=== PATIENT | male | born 1985 | race Caucasian/White ===

== ENCOUNTER 2020-02-11 10:51 | Outpatient (CLI) | payer OTHER, SELFPAY ==
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
== END 2020-02-11 10:52 | disposition home or self-care (01) ==
LOC: ANHIMG 10:54
PROVIDERS: PCP Internal Medicine; Visit Provider Nurse Practitioner
DX: R06.02 Shortness of breath (principal)
CPT/HCPCS: 71046

== ENCOUNTER 2020-02-29 09:23 | Outpatient (CLI) | payer OTHER, SELFPAY ==
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
[2020-02-29 09:58] LABS: Basophils Absolute Auto 0.1 K/mm3 (0.0-0.1); Basophils Percent Auto 0.6 % (0.2-1.2); Eosinophils Absolute Auto 0.5 K/mm3 (0-0.3); Eosinophils Percent Auto 5.8 % (0-4.4); Hemoglobin 15.7 g/dL (14.0-18.0); Immature Granulocyte Absolute 0.04 K/mm3 (0.00-0.031); Immature Granulocyte Percent A 0.5 % (0-0.5); Lymphocytes Absolute Auto 2.12 K/mm3 (0.9-3.2); Lymphocytes Percent Auto 24.2 % (18.3-44.2); Mean Corpuscular HGB Conc 32.7 g/dl (32-36); Mean Corpuscular Volume 91.6 fl (80-100); Mean Platelet Volume 9.7 fl (7.4-10.4); Monocytes Absolute Auto 0.7 K/mm3 (0.1-0.6); Neutrophils Absolute Auto 5.4 K/mm3 (1.3-6.7); Neutrophils Percent Auto 60.9 % (45.5-73.1); Platelet Count Result 270 k/mm3 (150-375); Red Blood Count 5.24 M/mm3 (4.6-6.20); Red Cell Distribution Width 14.1 % (11.5-14.5); White Blood Count 8.8 K/mm3 (4.5-10.0)
[2020-02-29 10:44] LABS: Erythrocyte Sedimentation Rate 18 mm/hr (0-20)
== END 2020-02-29 09:24 | disposition home or self-care (01) ==
PROVIDERS: PCP Internal Medicine; Visit Provider Internal Medicine
DX: M25.512 Pain in left shoulder (principal); D72.829 Elevated white blood cell count, unspecified
CPT/HCPCS: 36415; 73000; 73030; 85025; 85652

== ENCOUNTER 2020-05-02 06:35 | Outpatient (CLI) | payer OTHER, SELFPAY ==
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
== END 2020-05-02 06:36 | disposition home or self-care (01) ==
PROVIDERS: PCP Internal Medicine; Visit Provider Internal Medicine
DX: S42.035A Nondisplaced fracture of lateral end of left clavicle, initial encounter for closed fracture (principal); S46.012A Strain of muscle(s) and tendon(s) of the rotator cuff of left shoulder, initial encounter; V86.99XA Unspecified occupant of other special all-terrain or other off-road motor vehicle injured in nontraffic accident, initial encounter
CPT/HCPCS: 73221

== ENCOUNTER 2020-05-02 11:00 | Outpatient (RCR) | payer OTHER, SELFPAY ==
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
--- NOTE | 2020-04-11 09:32 | PCPTNOTE ---
Patient did not show up for scheduled appointment this date, called and left voicemail reminding about next scheduled appointment.
--- NOTE | 2020-04-13 09:49 | PCPTNOTE ---
Patient called & cancelled scheduled appointment this date no reason given.
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
--- NOTE | 2020-05-04 09:26 | PCPTNOTE ---
Admitting Provider: Attending Provider: Don Guzman DO Patient:Bry Bales Jr. Date of :1985 Discharge Note Patient has cancelled his remaining appointments since 05/02/2020, due to confirmed rotator cuff tear of his shoulder. Therefore he will be discharged at this time. Patient?s initial visit was on 03/27/2020 12:30 and he had a total of 9 visits. The goals have been partially met at this time. Thank you for referring this patient to [facility]. Please review, sign, date and return this discharge summary ASHLEY. I have been updated about the patient's current status and I agree with discharge from the above service at this time. Referring Physician Date
== END 2020-05-04 10:09 | disposition home or self-care (01) ==
LOC: ANHPT 11:00
PROVIDERS: PCP Internal Medicine; Visit Provider Internal Medicine
DX: M25.512 Pain in left shoulder (principal)
CPT/HCPCS: 97014; 97035; 97110; 97140; 97162; G0283

== ENCOUNTER 2020-05-25 08:40 | Outpatient (RCR) | payer OTHER, SELFPAY ==
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
--- NOTE | 2020-06-01 12:23 | PCPTNOTE ---
Admitting Provider: Attending Provider: Eloy Jerome, Patient:Bry Bales Jr. Date of :1985 Discharge note Patient has cancelled his remaining appointment due to scheduled for shoulder surgery. Patient?s initial visit was on 05/25/2020 08:45 and he had a total of 1 visits. The goals have not been met. Thank you for referring this patient to [facility]. Please review, sign, date and return this discharge summary ASHLEY. I have been updated about the patient's current status and I agree with discharge from the above service at this time. Referring Physician Date
== END 2020-08-16 14:54 | disposition home or self-care (01) ==
LOC: ANHPT 08:40
PROVIDERS: PCP Internal Medicine; Visit Provider Orthopaedic Surgery
DX: S46.012D Strain of muscle(s) and tendon(s) of the rotator cuff of left shoulder, subsequent encounter (principal); S43.52XD Sprain of left acromioclavicular joint, subsequent encounter
CPT/HCPCS: 97110; 97162

== ENCOUNTER 2020-08-22 19:52 | Emergency (ER) | payer OTHER, SELFPAY ==
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
[2020-08-22 20:16] VITALS: TEMP 36.9
[2020-08-22 20:27] LABS: Hematocrit 47.9 % (42.0-52.0); Hemoglobin 16.5 g/dL (14.0-18.0); Mean Corpuscular HGB Conc 34.4 g/dl (32-36); Mean Platelet Volume 10.4 fl (7.4-10.4); Platelet Count Result 264 k/mm3 (150-375); Red Blood Count 5.32 M/mm3 (4.6-6.20); Red Cell Distribution Width 13.8 % (11.5-14.5); White Blood Count 16.9 K/mm3 (4.5-10.0)
[2020-08-22] MEDS: SODIUM CHLORIDE 0.9% IV 1,000 ML 999 ML IV CONT (20:27)
[2020-08-22] MEDS: MORPHINE SULFATE (*CRX) 4 MG/ML INJ IV PUSH (20:28)
[2020-08-22] MEDS: ONDANSETRON INJ 4 MG/2 ML VIAL IV PUSH (20:29)
[2020-08-22 20:40] LABS: Anion Gap 9 mmol/L (8-16); Blood Urea Nitrogen 12 mg/dL (9-20); Calcium 9.4 mg/dL (8.4-10.2); Carbon Dioxide 27 mmol/L (22-30); Chloride 105 mmol/L (98-107); Estimated CRCL calculation 143 ml/min; Estimated Glomerular Filt Rate > 60; Glucose 103 mg/dL (75-110); Potassium 4.2 mmol/L (3.4-5.0); Sodium 141 mmol/L (137-145)
[2020-08-22] MEDS: KETOROLAC 30 MG/ML VIAL (*BKC) 15 MG IV PUSH (21:58)
[2020-08-22] MEDS: oxyCODONE/ACETAMINOPHEN (*CRX) 5-325 MG TABLET 2 TABLET PO (21:59)
[2020-08-22 22:16] VITALS: BP 142/78; PULSE 78; RESP 16; O2SAT 100
== END 2020-08-22 22:17 | disposition home or self-care (01) ==
PROVIDERS: Emergency Provider Emergency Medicine; PCP Internal Medicine
DX: S22.32XA Fracture of one rib, left side, initial encounter for closed fracture (principal); M47.816 Spondylosis without myelopathy or radiculopathy, lumbar region; F41.9 Anxiety disorder, unspecified; V86.95XA Unspecified occupant of 3- or 4- wheeled all-terrain vehicle (ATV) injured in nontraffic accident, initial encounter
CPT/HCPCS: 36415; 70450; 71260; 72125; 72129; 72132; 74177; 80048; 85025; 96361; 96374; 96375; 99284; A9270; J0131; J1885; J2270; J2405; J7030; Q9967

== ENCOUNTER 2020-08-28 10:45 | Outpatient (RCR) | payer SELFPAY ==
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
--- NOTE | 2020-07-25 13:03 | PCPTNOTE ---
Patient did not show up for scheduled appointment this date.
--- NOTE | 2020-07-27 11:30 | PCPTNOTE ---
Patient did not show up for scheduled appointment this date.
--- NOTE | 2020-08-03 15:34 | PCPTNOTE ---
Patient did not show up for scheduled appointment this date.
--- NOTE | 2020-08-08 08:31 | PCPTNOTE ---
pt did not show for today's appt; called and left voice mail message with reminder for next appt on 08-10-20 at 8:00;
--- NOTE | 2020-08-10 08:21 | PCPTNOTE ---
pt did not show for today's appt; called and left voice mail message--all remaining appts canceled and he has to call if needs more PT before POC date of 08-23-20; if not return, will be d/c from PT at that time.
--- NOTE | 2020-08-16 14:30 | PCPTNOTE ---
Addendum entered by Brittany Bauer, PT 08/17/20 16:15: 08-17-2020: Mr. Bales called today and wanted to reschedule his reevaluation, to resume PT treatment. The Discharge was canceled and his chart was reopened. The reevaluation is scheduled for August 24. Original Note: PHYSICAL THERAPY DISCHARGE 08-16-2020 Attending Provider: Eloy Jerome, Patient:Bry Bales Jr. Date of :1985 Mr. Bales has not returned for any further treatments since 08/01/2020, therefore he will be discharged at this time. He received the PT evaluation on July 12 for the diagnosis of s/p L shoulder surgery and had 3 additional PT sessions, then he did not show for the remaining appointments. The goals were not assessed. Thank you for referring Bry to [facility]. Please review, sign, date and return this discharge summary ASHLEY. I have been updated about the patient's current status and I agree with discharge from the above service at this time. Referring Physician Date
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
--- NOTE | 2020-08-28 11:25 | PCPTNOTE ---
Patient did not show up for scheduled appointment this date. Called Pt, Pt apologized he thought his appointment was on Friday08/29/20 not today and was out of town. Reminded Pt of upcoming appointment on 09/01/20 at 10:45am.
--- NOTE | 2020-09-01 11:04 | PCPTNOTE ---
Patient did not show up for scheduled appointment this date. Called Pt, Pt stated to have forgotten about his appointment this morning. Reminded Pt of his next appointment on Friday, 09/04 at 8:00am. Pt confirmed the appointment would work for him.
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
--- NOTE | 2020-09-08 11:59 | PCPTNOTE ---
Patient did not show up for scheduled appointment this date.
--- NOTE | 2020-09-11 09:39 | PCPTNOTE ---
Patient did not show up for scheduled appointment this date.
--- NOTE | 2020-09-15 09:52 | PCPTNOTE ---
pt did not show for today's treatment appointment; I called and left him a voice mail message--- his remaining 2 scheduled appts have been canceled and if needs any more PT, he will have to call and schedule.
--- NOTE | 2020-09-27 09:02 | PCPTNOTE ---
PHYSICAL THERAPY DISCHARGE 09-27-2020 Attending Provider: Eloy Jerome MD Patient:Bry Bales Jr. Date of :1985 Ty has not returned for any further treatments since 08/28/2020, therefore he will be discharged at this time. He has received 5 PT sessions, from July 12 to August 24, then stopped attending PT. He did not show for 10 scheduled appointments and called and canceled 1 appointment. The goals were not achieved. Thank you for referring Mr. Bales to [facility]. Please review, sign, date and return this discharge summary ASHLEY. I have been updated about the patient's current status and I agree with discharge from the above service at this time. Referring Physician Date
== END 2020-09-27 14:34 | disposition home or self-care (01) ==
LOC: ANHPT 10:45
PROVIDERS: PCP Internal Medicine; Visit Provider Orthopaedic Surgery
DX: Z48.817 Encounter for surgical aftercare following surgery on the skin and subcutaneous tissue (principal)
CPT/HCPCS: 97110; 97140; 97161

== ENCOUNTER 2022-01-24 10:19 | Outpatient (CLI) | payer MEDICAID, SELFPAY ==
--- NOTE | ~2022-01-24 | XR_ITS ---
EXAMINATION: XR ankle LT min 3V, XR foot LT min 3V DATE: 01/24/2022 11:36 INDICATION: Left foot pain and swelling TECHNIQUE: 1. Anteroposterior, mortise, additional oblique and lateral view of the left ankle were obtained. 2. Dorsoplantar, two oblique and lateral views of the left foot were obtained. COMPARISON: None. FINDINGS: Chronic segmental osteotomy of the proximal diaphysis of the fourth metatarsal with smooth corticated margins. Alignment of the left foot and ankle is otherwise normal. No fracture. Osteoarthritis with mild joint space narrowing at the second tarsal metatarsal joint mild osteoarthritis at the the tibio talar, navicular cuneiform and first metatarsophalangeal and a few interphalangeal joints. No cortica l erosions or periosteal reaction. No ankle joint effusion. The soft tissues are unremarkable. IMPRESSION: 1. No acute osseous abnormality at the left foot and ankle. 2. Segmental osteotomy of the proximal diaphysis of the left fourth metatarsal. Line 3. Polyarticular osteoarthritis, moderate at the second tarsal metatarsal joint and otherwise mild. Reviewed, dictated and finalized at location A. IMPRESSION: 1. No acute osseous abnormality at the left foot and ankle. 2. Segmental osteotomy of the proximal diaphysis of the left fourth metatarsal. Line 3. Polyarticular osteoarthritis, moderate at the second tarsal metatarsal joint and otherwise mild.
--- NOTE | ~2022-01-24 | US_ITS ---
EXAMINATION: US venous doppler [facility] DATE: 01/24/2022 10:50 INDICATION: Left lower limb pain and swelling. TECHNIQUE: Grayscale ultrasound images without and with compression and Doppler ultrasound images of the left lower extremity veins were obtained. COMPARISON: None. FINDINGS: The visualized portions of left common femoral vein, profunda (deep) femoral vein, femoral vein, popl iteal vein, peroneal veins, posterior tibial veins, and greater saphenous vein outflow are patent. IMPRESSION: 1. No deep venous thrombosis. Reviewed, dictated and finalized at location A.
== END 2022-01-24 10:20 | disposition home or self-care (01) ==
PROVIDERS: PCP Internal Medicine; Visit Provider Nurse Practitioner
DX: R60.9 Edema, unspecified (principal); M19.072 Primary osteoarthritis, left ankle and foot
CPT/HCPCS: 73610; 73630; 93971

== ENCOUNTER 2023-01-27 09:05 | Outpatient (CLI) | payer OTHER, SELFPAY ==
--- NOTE | ~2023-01-27 | XR_ITS ---
AP and lateral views of the bilateral hips Clinical history: Pain Findings: No acute fracture or dislocation is seen. Single orthopedic screw is present within each fe moral neck. Osseous alignment is anatomic. Bilateral hip and SI joint spaces are preserved. Soft tiss ues are unremarkable. Impression: No acute abnormality evident. Single orthopedic screw within each femoral neck. Correlate with surgical history. Reviewed, dictated and finalized at [facility]. Impression: No acute abnormality evident. Single orthopedic screw within each femoral neck. Correlate with surgical histo ry.
--- NOTE | ~2023-01-27 | XR_ITS ---
Lumbosacral Spine: AP and lateral views Clinical History: Pain Findings: The normal lordotic curve is maintained. Minimal anterior wedging deformity of T11 noted. N o lumbar fracture identified. Probable grade 1 anterolisthesis of L5 over S1.. There is advanced dege nerative disc narrowing at L2-L3. The sacroiliac joints are normally outlined. Impression: Minimal anterior wedging deformity of T11. Probable grade 1 anterolisthesis of L5 over S1. Advanced degenerative disc narrowing at L2-L3. Reviewed, dictated and finalized at location . Impression: Minimal anterior wedging deformity of T11. Probable grade 1 anterolisthesis of L5 over S1. Advanced degenerative disc narrowing at L2-L3.
== END 2023-01-27 09:06 | disposition home or self-care (01) ==
PROVIDERS: PCP Internal Medicine; Visit Provider Nurse Practitioner
DX: M25.551 Pain in right hip (principal); M25.552 Pain in left hip; M54.50 Low back pain, unspecified; M51.36 Other intervertebral disc degeneration, lumbar region
CPT/HCPCS: 72100; 73521

== ENCOUNTER 2023-02-21 12:45 | Outpatient (RCR) | payer OTHER, SELFPAY ==
--- NOTE | 2023-02-20 15:33 | PCPTNOTE ---
Pt rescheduled todays appt for tomorrow.
--- NOTE | 2023-02-20 19:36 | PTOPEVAL1 ---
Assessment and note entered by Skip Moreno, PT Evaluation Information Assessment Status Evaluation Diagnosis low back pain Onset chronic Subjective Information Patient reports he is homeless and sleeps a lot on concrete and also has had ALBA hip surgeries when he was younger. His pain is radiating down the legs. Occasionally it will cause his legs to buckle causing him to catch himself. Has trouble with walking, riding his bike, and sleeping. Takes IBU and Tylenol. Assessment PT Clinical Summary Ty is a 27 year old male coming into the clinic with a diagnosis of low back pain. The patient has tightness in his lumbar paraspinals along with lower extremity tightness and poor core. Physical therapy will start with modalities, stretching, and manual therapy to help with pain control and get back in better alignment then progress to core strengthening. Based on patient reporting he sleeps on the concrete and homeless it will slow progress and make prognosis guarded. Plan of Care Interventions Electrical Stimulation,Gait Training,Hot Pack/Cold Pack,Manual Therapy,Mechanical Traction,Neuro Re- education,Patient/Caregiver Education,Therapeutic Activities,Therapeutic Exercise,Ultrasound Other Interventions cupping, taping, IASTM PT Services Indicated Yes Treatment Frequency and 1-2x/wk for 4 weeks Duration These treatments will address the objective and functional deficits as defined above. The patient will be advanced safely and appropriately in order for the patient to progress towards his/her prior level of function. Additional exercises will be introduced and as well as a comprehensive home exercise program upon discharge, if needed, ?to ensure carryover of functional gains achieved in the clinic. This treatment plan has been reviewed and agreement upon by the patient.
--- NOTE | 2023-02-28 13:14 | PCPTNOTE ---
Pt called 30 min before appt time to cancel his appt due to no ride.
--- NOTE | 2023-03-03 14:08 | PCPTNOTE ---
Patient did not show up for scheduled appointment this date.
--- NOTE | 2023-03-06 14:56 | PCPTNOTE ---
Pt no showed appt today.
--- NOTE | 2023-03-11 13:22 | PCPTNOTE ---
Pt no showed for visit this afternoon. Pt was called and a message was left with day and time of next visit.
--- NOTE | 2023-03-13 09:57 | PCPTNOTE ---
Admitting Provider: Attending Provider: Tami Lee NP Patient:Bry Bales Jr. Date of :1985 Patient has not returned for any further treatments since 02/21/2023, therefore he will be discharged at this time. Patient?s initial visit was on 02/18/2023 13:15 and he had a total of ____2____ visits with 3 no shows and 2 cancellations The goals have been not met. Thank you for referring this patient to [facility]. Please review, sign, date and return this discharge summary ASHLEY. I have been updated about the patient's current status and I agree with discharge from the above service at this time. Referring Physician Date
== END 2023-03-13 11:59 | disposition home or self-care (01) ==
LOC: ANHPT 12:45
PROVIDERS: PCP Internal Medicine; Visit Provider Nurse Practitioner
DX: M54.50 Low back pain, unspecified (principal)
CPT/HCPCS: 97014; 97110; 97140; 97161; 99199; G0283

== ENCOUNTER 2023-03-22 11:13 | Emergency (ER) | payer OTHER, SELFPAY ==
[2023-03-22 11:22] VITALS: BP 131/80; PULSE 74; RESP 18; TEMP 36.6; O2SAT 98
--- NOTE | 2023-03-22 12:52 | ED.PROGRESS ---
Subjective Date/time seen: 03/22/23 12:52 Interval history: I went out to introduce myself to patient and bring back to triage room to do initial evaluation since we do not have any rooms in the back. Pt declined to be seen because he did not want to be put back out in the waiting room and is opting to leave instead. Review of Systems Review of Systems not done Exam Narrative not done Objective Data Vital Signs Vital Signs: Vital Signs - 24 hr 03/22/23 11:22 Temperature 36.6 C Pulse Rate 74 Respiratory Rate 18 Blood Pressure 131/80 Pulse Oximetry 98 Oxygen Delivery Room Air Progress Note: A&P Assessment and Plan (1) Low back pain: Code(s): M54.50 - Low back pain, unspecified Status: Acute Plan Leaving without evaluation by provider. Time Spent With Patient Time: 5 minutes
--- NOTE | 2023-03-22 12:53 | PC.NURSE ---
When ACROBATIC RIGGER approached pt to evaluate pt. pt states he does not want to wait any longer and is leaving. IV removed w/ catheter intact.
== END 2023-03-22 13:43 | disposition left against medical advice (07) ==
PROVIDERS: Emergency Provider Nurse Practitioner Family; PCP Internal Medicine
DX: M54.50 Low back pain, unspecified (principal)
CPT/HCPCS: 99199

== ENCOUNTER 2023-03-30 07:37 | Outpatient (CLI) | payer OTHER, SELFPAY ==
--- NOTE | ~2023-03-30 | MR_ITS ---
EXAMINATION: MR lumbar spine wo con DATE: 03/30/2023 08:03 INDICATION: Low back pain, unspecified. TECHNIQUE: Magnetic resonance imaging (MRI) of the lumbar spine was performed without intravenous con trast. Sequences included sagittal T2-weighted FSE, sagittal T2-weighted FS FSE, sagittal T1-weighted FSE, and axial T2-weighted FSE. COMPARISON: Lumbar spine radiographs 01/27/2023 FINDINGS: There is 6 degrees levocurvature of lumbar spine. There is 5 mm retrolisthesis of L2 on L3. There is mild chronic anterior wedging of T11-L2 vertebral bodies. There is severely decreased disc height at L2-L3 and mildly decreased disc height at L3-L4 with endplate remodeling. The distal spinal cord signal intensity is normal. The conus medullaris is at L1. The following disc levels are specif ically discussed: L1-L2: The disc is bulging. There is severe bilateral facet joint osteoarthritis. There is mild left neural foraminal stenosis. There is mild central canal stenosis. L2-L3: The disc is bulging with superimposed right subarticular zone extrusion. There is moderate damaris ateral facet joint osteoarthritis. There is moderate bilateral neural foraminal stenosis. There is mi ld central canal stenosis. There is moderate stenosis of right lateral recess. L3-L4: The disc is bulging. There is severe bilateral facet joint osteoarthritis. There is mild right and moderate left neural foraminal stenosis. There is mild central canal stenosis. L4-L5: The disc is bulging. There is severe bilateral facet joint osteoarthritis. There is mild bilat eral neural foraminal stenosis. There is no central canal stenosis. L5-S1: The disc is bulging. There is severe bilateral facet joint osteoarthritis. There is mild later al neural foraminal stenosis. There is mild central canal stenosis. IMPRESSION: 1. Severe lumbar spondylosis. Reviewed, dictated and finalized at location A.
== END 2023-03-30 07:38 | disposition home or self-care (01) ==
PROVIDERS: PCP Internal Medicine; Visit Provider Nurse Practitioner
DX: M47.896 Other spondylosis, lumbar region (principal)
CPT/HCPCS: 72148

== ENCOUNTER 2023-09-04 09:29 | Outpatient (CLI) | payer OTHER, SELFPAY ==
--- NOTE | ~2023-09-04 | MR_ITS ---
EXAMINATION: MR cervical spine wo con DATE: 09/04/2023 10:12 INDICATION: Disease of spinal cord, unspecified. TECHNIQUE: Magnetic resonance imaging (MRI) of the cervical spine was performed without intravenous c ontrast. COMPARISON: CT cervical spine 08/22/2020 FINDINGS: There is hypolordosis of the cervical spine. There are Schmorl's nodes of the inferior endp lates of C4 and C6. There is mild chronic anterior wedging of T1 vertebral body. There is mildly decr eased disc height at C6-C7. The spinal cord signal intensity is normal. The following disc levels are specifically discussed: C2-C3: The disc does not extend beyond the endplate margin. There is no uncovertebral joint osteoarth ritis. There is moderate left facet joint osteoarthritis. There is mild left neural foraminal stenosi s. There is no central canal stenosis. C3-C4: The disc does not extend beyond the endplate margin. There is no uncovertebral joint osteoarth ritis. There is severe bilateral facet joint osteoarthritis. There is mild left neural foraminal sten osis. There is no central canal stenosis. C4-C5: The disc does not extend beyond the endplate margin. There is mild bilateral uncovertebral brittny nt osteoarthritis. There is mild right facet joint osteoarthritis. There is no neural foraminal steno sis. There is no central canal stenosis. C5-C6: The disc does not extend beyond the endplate margin. There is no uncovertebral joint osteoarth ritis. There is mild right and moderate left facet joint osteoarthritis. There is no neural foraminal stenosis. There is no central canal stenosis. C6-C7: The disc is bulging. There is mild bilateral uncovertebral joint osteoarthritis. There is mild bilateral facet joint osteoarthritis. There is mild bilateral neural foraminal stenosis. There is mi ld central canal stenosis. C7-T1: There is a central protrusion. There is no uncovertebral joint osteoarthritis. There is severe bilateral facet joint osteoarthritis. There is mild bilateral neural foraminal stenosis. There is no central canal stenosis. IMPRESSION: 1. Mild cervical spondylosis. Reviewed, dictated and finalized at location E.
--- NOTE | ~2023-09-04 | XR_ITS ---
EXAMINATION: XR lumbar spine 2-3V DATE: 09/04/2023 10:26 INDICATION: Low back pain TECHNIQUE: Lateral views of the lumbar spine in neutral, flexion, and extension were obtained. COMPARISON: 01/27/2023 FINDINGS: There are 5 mm of unchanged retrolisthesis of L2 on L3. No hypermobility is noted with flex ion or extension. The vertebral body heights are maintained. There is severe loss of intervertebral d isc space height at L2-3. The lumbar vertebral body heights are maintained. Small degenerative osteop hytes project from the anterior endplates of multiple vertebral bodies. IMPRESSION: 1. Severe lumbar spondylosis at L2-3 without acute findings or significant interval change. Reviewed, dictated and finalized at location F. IMPRESSION: 1. Severe lumbar spondylosis at L2-3 without acute findings or significant inte rval change.
== END 2023-09-04 09:30 | disposition home or self-care (01) ==
PROVIDERS: PCP Internal Medicine; Visit Provider Neurological Surgery
DX: M43.16 Spondylolisthesis, lumbar region (principal); M48.061 Spinal stenosis, lumbar region without neurogenic claudication; G95.9 Disease of spinal cord, unspecified; M47.26 Other spondylosis with radiculopathy, lumbar region; M47.892 Other spondylosis, cervical region
CPT/HCPCS: 72100; 72141

== ENCOUNTER 2025-06-09 13:38 | Emergency (ER) | payer OTHER, SELFPAY ==
--- NOTE | 2025-06-09 13:43 | ED_ITS ---
HPI - URI/Sore Throat General Chief Complaint: Upper Respiratory Infection Stated Complaint: Ears/Sore Throat Time Seen by Provider: 06/09/25 13:50 Source: patient Mode of arrival: ambulatory Limitations: no limitations History of Present Illness HPI Narrative: Don is a 40-year-old male patient presenting to the clinic today with complaints bilateral ear discomfort, runny nose, congestion, cough, and sore throat x2 days. He denies any fevers, chills, or body aches. No chest pain or shortness of breath Related Data Home Medications ?Medication ?Instructions ?Recorded ?Confirmed ?Last Taken ?Type buspirone 10 mg tablet See Rx Instructions .Route 11/20/23 Unknown History .COMPLEX PRN Allergies Allergy/AdvReac Type Severity Reaction Status Date / Time No Known Allergies Allergy Verified 06/09/25 13:44 Review of Systems Review of Systems: Pertinent positives per HPI. Patient denies any fever, chills, rash, headache, visual changes, dizziness, cough, shortness of breath, chest pain, palpitations, nausea, vomiting, diarrhea, constipation, abdominal pain, or any urinary issues. [facility] Past Medical History Medical History Depression Rotator cuff disorder Left side surgery 06/20/2020. Anxiety Surgical History Surgical History H/O foot surgery Family History Family History Mother Patient's mother is in good health Family history of cardiovascular disease Family history of malignant neoplasm Father Patient's father is in good health Other Family history of alcoholism Family history of arthritis Hypertension Social History Social History Smoking packs per day: 2 Smoking cigarettes per day: 40.0 Smoking status: Current every day smoker Additional smoking assessment comments: down to a pack every 3 days Alcohol intake: current Alcohol use details: less than 1 drink per week Substance use: current Substance use type: marijuana Do You Feel Safe in your Home?: Yes Lack of Transportation: No Lack of Food: Sometimes True Current Housing: I Have Housing Concerned About Future Housing: No Difficulty Paying Gas/Electric Bills: No Difficulty Paying for Meds: No Currently Unemployed: No Education: Associate Degree Difficulty w/ Childcare or Family Care: No Comments At the time of my signature, I reviewed and agree with the nursing past medical, surgical, social, and family history. There is no relevant family history pertinent to the patient complaint. Exam Narrative: General: Well-developed, well nourished, in no apparent distress Head: Normocephalic, atraumatic Eyes: Pupils equally round and reactive to light bilaterally, EOM intact, sclera and conjunctive clear, no discharge, lids normal Ears: TMs intact and congested, ear canals clear, no drainage, grossly hearing normal. Nose: Nares patent, clear discharge, moderate inflammation, no sinus tenderness. Mouth: Oral pharynx red without lesions or masses, good dentition, MMM. Neck: Supple, trachea midline, no enlargement of anterior or posterior cervical nodes, no thyroid masses or goiter palpable. Cardio: Regular rate and rhythm, s1 and s2 normal, no murmur appreciated. Resp: Clear to auscultation bilaterally, no rhonchi, rales, wheezing or rubs Course Course Emergency Course: Portions of this record may have been created with voice recognition software. Level of Care: Express Care Visit Vital Signs Vital signs: Vital Signs Temperature 36.6 C 06/09/25 13:46 Pulse Rate 95 06/09/25 13:46 Respiratory Rate 16 06/09/25 13:46 Blood Pressure 183/86 H 06/09/25 13:46 Pulse Oximetry 96 06/09/25 13:46 Oxygen Delivery Room Air 06/09/25 13:46 Temperature 36.6 C 06/09/25 13:46 Pulse Rate 95 06/09/25 13:46 Respiratory Rate 16 06/09/25 13:46 Blood Pressure 183/86 H 06/09/25 13:46 Pulse Oximetry 96 06/09/25 13:46 Oxygen Delivery Room Air 06/09/25 13:46 Vital signs reviewed MDM - URI/Sore Throat MDM Narrative Medical decision making narrative: At the time of visit patient is resting comfortably on the exam table. Patient appears to be nontoxic. Complaints bilateral ear discomfort, runny nose, congestion, cough, and sore throat x2 days. He denies any fevers, chills, or body aches. No chest pain or shortness of breath Offered COVID testing and patient declined. Strep test was ordered. Labs: Strep test was negative in the clinic today. We will send strep for culture Plan: I suspect patient has URI/pharyngitis. Supportive measures were discussed with the patient and they voiced understanding discharge instructions and agrees to treatment plan. Return precautions reviewed Differential Diagnosis Differential diagnosis: Likely upper respiratory infection, otitis media, sinusitis, viral infection, bronchitis, influenza, pharyngitis and other Lab Data Labs: Lab Results 06/09/25 Range/Units 14:03 POC Grp A Strep Screen Negative (Negative) Discharge Plan Discharge Clinical Impression: URI (upper respiratory infection) Qualifiers: URI type: unspecified URI Qualified Code(s): J06.9 - Acute upper respiratory infection, unspecified Pharyngitis Qualifiers: Pharyngitis/tonsillitis etiology: unspecified etiology Qualified Code(s): J02.9 - Acute pharyngitis, unspecified Patient Disposition: Home Condition: Stable Instructions: Antibiotic Form, Pharyngitis (ED), Cold Symptoms (ED) Additional Instructions: Strep test was negative in the clinic today. We will send strep for culture if this comes back positive we will contact you and place you on antibiotics at that time. May take Coricidin HBP for cold/flu symptoms as directed Increase fluids and stay well hydrated Tylenol/motrin for pain/fever as per bottle directions Flonase and OTC antihistamines such as Zyrtec or Claritin 10 mg daily as directed Vicks vapor rub to open sinuses Sinus rinses for congestion Cepacol spray, cough drops, throat lozenges, warm tea with honey/lemon, gargle salt water to soothe throat BRAT diet for diarrhea Clear liquids x 24 hours then advance as tolerated for nausea/vomiting Go to the ED if you develop a worsening in your condition- high fever not controlled by Tylenol or Motrin, dehydration, weakness, lethargy, shortness of breath, or chest pain. Follow up with your PCP in 3-5 days if symptoms persist. Patient Language: [place]an Prescriptions: No Action cyclobenzaprine 10 mg tablet 10 mg PO TID PRN (Reason: muscle spasm) Qty: 30 2RF buspirone 10 mg tablet See Rx Instructions .ROUTE .COMPLEX PRN Dose Instruction: TAKE 2 TABLETS BY MOUTH TWICE DAILY. LAST REFILL UNTIL SEEN Rx Instructions: TAKE 2 TABLETS BY MOUTH TWICE DAILY. LAST REFILL UNTIL SEEN PRN; albuterol sulfate 90 mcg/actuation HFA aerosol inhaler See Rx Instructions .ROUTE .COMPLEX Qty: 8.5 3RF Dose Instruction: INHALE 2 PUFFS BY MOUTH EVERY 4-6 HOURS NEEDED Rx Instructions: INHALE 2 PUFFS BY MOUTH EVERY 4-6 HOURS NEEDED sertraline 100 mg tablet 200 mg PO DAILY Qty: 180 0RF Rx Instructions: NEEDS APPOINTMENT FOR FURTHER REFILLS Follow-up/Referrals: Don Guzman DO [Primary Care Provider] - Time of Disposition: 14:08 Quality NIHSS Nursing Documentation ED NIHSS nursing documentation: reviewed/agree
[2025-06-09 13:46] VITALS: BP 183/86; PULSE 95; RESP 16; TEMP 36.6; O2SAT 96
[2025-06-09 14:05] LABS: EDSTREPNEGPOS1 Negative (Negative)
== END 2025-06-09 14:12 | disposition home or self-care (01) ==
PROVIDERS: Emergency Provider Nurse Practitioner Family; PCP Internal Medicine
DX: J06.9 Acute upper respiratory infection, unspecified (principal); J02.9 Acute pharyngitis, unspecified; F17.210 Nicotine dependence, cigarettes, uncomplicated; F41.9 Anxiety disorder, unspecified; F32.A Depression, unspecified
CPT/HCPCS: 87081; 87880; 99213; G0463

== ENCOUNTER 2025-07-21 07:47 | Outpatient (CLI) | payer OTHER, SELFPAY ==
--- NOTE | 2025-08-03 12:51 | P.SLEEP_ITS ---
Sleep Study - Home Unattended Date of Study: 07/21/25 Ordering Provider: Tami Lee NP Interpreting Provider: Ophelia De, DO Home Sleep Study Type: Watch PAT Height: 1.73 m Weight: 131.542 kg Body Mass Index: 44.1 Neck Circumference (inches): 17.25 [place]: 4 Reason for Sleep Study Loud snoring, witnessed apneas Sleep History The patient is a 40-year-old male that had a sleep study ordered by his primary care for evaluation of sleep apnea. He admits to snoring loudly, trouble maintaining sleep and interruptions in breathing while sleeping. He does choke or gasp at night. He denies having trouble breathing on his back. He denies morning headaches. He does have a dry or sore mouth/ throat in the morning. He does have nocturnal heartburn. He denies nocturia. He denies having difficulty returning to sleep if he wakes up throughout the night. He denies any hypnotic or sedative use. He denies feeling anxious about sleep. He does feel tired or sleepy during the day. He denies feeling tired in the morning. He denies having the urge to fall asleep during the day. He denies feeling drowsy while driving. He denies sleep paralysis, cataplexy and hypnagogic/ hypnopompic hallucinations. He does clench or grind his teeth. He does kick or jerk his legs excessively. He does have a restless feeling in his legs but it does not cause an urge to move his legs. It is not worse with rest. It does get better with activity. It is predominantly in the evening but it does not cause a disturbance in his sleep. He goes to bed at 10:00 p.m. on work days and at 11:00 p.m. on his days off. It takes him 15 minutes to fall asleep. He gets 7-1/2 hours of sleep on work days and 7 hours on his days off. His sleep is somewhat restorative on days off. He denies taking any planned naps. He denies dream enactment behavior. He denies sleep walking. He consumes 1-2 cups of caffeinated beverage per day. He consumes more than 3 alcoholic beverages 5-7 nights per week. He smokes more than 1 pack of cigarettes per day. He denies exercising on a regular basis. [facility] Past Medical History Medical History Depression Rotator cuff disorder Left side surgery 06/20/2020. Anxiety Surgical History Surgical History H/O foot surgery Family History Family History Mother Patient's mother is in good health Family history of cardiovascular disease Family history of malignant neoplasm Father Patient's father is in good health Other Family history of alcoholism Family history of arthritis Hypertension Social History Social History Smoking packs per day: 2 Smoking cigarettes per day: 40.0 Smoking status: Current every day smoker Additional smoking assessment comments: down to a pack every 3 days Alcohol intake: current Alcohol use details: less than 1 drink per week Substance use: current Substance use type: marijuana Do You Feel Safe in your Home?: Yes Lack of Transportation: No Lack of Food: Sometimes True Current Housing: I Have Housing Concerned About Future Housing: No Difficulty Paying Gas/Electric Bills: No Difficulty Paying for Meds: No Currently Unemployed: No Education: Associate Degree Difficulty w/ Childcare or Family Care: No Medications Home Medications ?Medication ?Instructions ?Recorded ?Confirmed ?Type albuterol sulfate 90 mcg/actuation See Rx Instructions .Route 07/01/25 07/01/25 Rx aerosol inhaler .COMPLEX #8.5 grams buspirone 10 mg tablet 10 mg PO BID PRN anxiety #60 tabs 07/01/25 07/01/25 Rx omeprazole 20 mg capsule,delayed 20 mg PO DAILY #90 ca ps 07/13/25 Rx release Sleep Procedure The sleep study was completed using [employer] AGT a technically adequate device with seven channels: peripheral arterial tone, actigraphy, body position, snore, respiratory movement, pulse oximetry, sleep staging, and heart rate. Prior to using the device, the patient received verbal and written instructions for its application and was provided with the [employer] phone number for additional telephonic instruction with 24-hour availability of qualified personnel to answer questions. The study was scored using CMS guidelines. Sleep Architecture The total recording time is 6 hrs, 3 min. The total sleep time is 3 hrs, 38 min. Sleep latency is 107 minutes. REM latency is 44 minutes. The patient had 4 episodes of waking. Sleep architecture shows 12.4% deep sleep, 52.7% light sleep, and (as % Total Sleep Time) showed NREM (Light 52.7%; Deep 12.4%), and a 35.0% stage REM. The patient spent 41.8% of total sleep time in the supine position. Sleep efficiency was 60.06. Respiratory Analysis The overall AHI (pAHI 4%:) is 15.8. The overall AHI (pAHI 3%:) is 21.7. The central AHI is 0.0. The AHI was 14.1 in NREM and 35.8 in REM sleep. The AHI was 23.3 in Supine and 20.5 in Non-supine sleep. Percent of Cecilio Sumner respirations is 0.0. Oximetry Data The oxygen desaturation index (RYLIE 4%:) is 13.6. The mean saturation is 94%, and the lowest saturation is 87%. Time spent with saturation < 88% is 0.4 minutes. Snoring Profile Snoring average intensity is 51 dB. The patient snored above 45 decibels for 143.8 minutes, 65.8% of sleep time. Cardiac Profile The average pulse rate is 84 beats per minutes. The lowest pulse rate is 65 bpm. The highest pulse rate reported is 110 bpm. Atrial fibrillation was not detected. Premature beats occur 0.3 per minute. Assessment and Plan Assessment and Plan (1) ARIANA (obstructive sleep apnea): Code(s): G47.33 - Obstructive sleep apnea (adult) (pediatric) Status: Acute Assessment and Plan: The patient had an overall AHI of 15.8 with desaturation down to 87%. This is consistent with moderate sleep apnea. I recommend that the patient be prescribed AutoPAP 5-15 cm H2O, CPAP mask/filters/tubing and heated humidity. A mandibular advancement device is also an acceptable treatment option. This should be used with all episodes of sleep.? Compliance should be reviewed within 31-90 days of starting therapy for usage greater than 4 hours per night greater than 70% of the nights. The patient should be asked about symptoms such as?excessive daytime sleepiness, quality of sleep, decreased nocturia, increased?mental functioning such as memory, mood, and concentration. Data The data obtained during this sleep study is adequate for interpretation. Certification This sleep study has been reviewed by a board certified sleep medicine physician.
[2025-08-04 07:06] VITALS: BMI 44.1
== END 2025-07-22 10:06 | disposition home or self-care (01) ==
LOC: ANHCSM 07:48
PROVIDERS: PCP Nurse Practitioner; Visit Provider Nurse Practitioner
DX: G47.33 Obstructive sleep apnea (adult) (pediatric) (principal); F39 Unspecified mood [affective] disorder
CPT/HCPCS: 95800